=== PATIENT | male | born 1955 | race Caucasian/White ===

== ENCOUNTER 2018-04-20 09:48 | Emergency (ER) | payer BC ==
[2018-04-20] MEDS ORDERED: LIDOCAINE 5% (700 MG) TRANSDERMAL ADH..PATCH TP ONE (10:14)
[2018-04-20] MEDS ORDERED: KETOROLAC TROMETHAMINE INJ/PF 30 MG/1 ML SDV IM ONE (10:15)
[2018-04-20] MEDS ORDERED: CYCLOBENZAPRINE HCL 10 MG TABLET PO ONE (10:15)
[2018-04-20 10:19] VITALS: BP 175/81
--- NOTE | 2018-04-20 10:20 | ER Document Report ---
HPI - HPI Time Seen by Provider: 04/20/18 10:04 Notes: Patient is a 62-year-old male with a history of type 2 diabetes, chronic back pain who presents to the ED complaining of a flareup of his right low back pain prior to arrival. Patient states that he was starting to have pain yesterday and had been chopping wood and doing more than he was supposed to be doing. Patient states that he noticed a sharp pain this morning that radiated down the L4 dermatome approximately which is not unusual for him. Patient states that he is supposed to have surgery, but is working on [employer] to allow it. He takes naproxen for his pain management twice daily which usually works really well for him. Patient states that he has not had an intense pain like this before, but after receiving medications by EMS the pain has resolved and he is feeling much better. He denies any IV drug abuse. He has been eating and drinking without any difficulties. He is urinating normally and having normal bowel movements. He has no other concerns or complaints or any history of spinal abscess. Denies any headache, fever, neck pain, URI, sore throat, chest pain, palpitations, syncope, cough, shortness of breath, wheeze, dyspnea, abdominal pain, nausea/vomiting/diarrhea, urinary retention, dysuria, hematuria, loss of control of bowel or bladder, numbness/tingling, saddle anesthesia, muscle paralysis/weakness, or rash. - ROS Systems Reviewed and Negative: Yes All other systems reviewed and negative Past Medical History - Social History Smoking Status: Never Smoker Family History: Reviewed & Not Pertinent Vertical Provider Document - CONSTITUTIONAL Agree With Documented VS: Yes Notes: PHYSICAL EXAMINATION: GENERAL: Well-appearing, well-nourished and in no acute distress. LUNGS: Breath sounds clear to auscultation bilaterally and equal. No wheezes rales or rhonchi. HEART: Regular rate and rhythm without murmurs, rubs, gallops. ABDOMEN: Soft, nontender, nondistended abdomen. No guarding, no rebound. No masses appreciated. Normal bowel sounds present. No CVA tenderness bilaterally. No pulsatile mass. Rectal tone intact. Musculoskeletal: LE's b/l: FROM to passive/active. Strength 5+/5. No deficits noted. No bony tenderness of extremities. Back: FROM to passive/active. Strength 5+/5. No vertebral point tenderness, stepoffs, or deformities. No other bony tenderness, erythema, swelling, or ecchymosis. SLR negative b/l. + mild tenderness to the Rt L-paraspinal mm/facets near L3-5. Mild spasming. No SI jt tenderness. No foot drop Extremities: No cyanosis, clubbing, or edema b/l. Peripheral pulses 2+. Capillary refill less than 2 seconds. NEUROLOGICAL: Normal speech, normal gait. Normal sensory, motor exams. Reflexes 2+ b/l. PSYCH: Normal mood, normal affect. SKIN: Warm, Dry, normal turgor, no rashes or lesions noted. Course - Re-evaluation Re-evalutation: 04/20/18 10:19 Patient is an afebrile, well-hydrated, 62-year-old male who presents to the ED w ith acute on chronic low back pain. Vitals are acceptable. PE is otherwise unremarkable for any focal neurological deficits. Patient was given Toradol, flexeril, and Lidoderm patch. He has no significant tachycardia, tachypnea, or hypoxia. He is nontoxic-appearing and is tolerating p.o. without difficulties. There are no signs of infection. No other red flag symptoms noted. Pt currently asymptomatic. No other labs or imaging warranted at this time based on H&P. Low suspicion for any meningitis, fracture, expanding/ruptured AAA, cauda equina syndrome, epidural mass lesion/abscess, herniated disc causing severe spinal stenosis, or other systemic infection at this time. Patient is aware that his condition can change from initial presentation and that he needs monitor symptoms closely for any acute changes. I will send him home with a prescription for baclofen and lidoderm patches. Conservative measures otherwise for symptoms. Recheck with your PCM in 3-5 days. Consider consult with orthopedic/physical therapy. Return to the ED with any worsening/concerning symptoms otherwise as reviewed discharge. Patient is in agreement. Discharge - Discharge Clinical Impression: Low back pain Qualifiers: Chronicity: acute Back pain laterality: right Sciatica presence: with sciatica Sciatica laterality: sciatica of right side Qualified Code(s): M54.41 - Lumbago with sciatica, right side Condition: Stable Disposition: HOME, SELF-CARE Instructions: Low Back Pain ([facility]), Stretching Exercises for the Back ([facility]), Muscle Relaxers ([facility]) Additional Instructions: Rest, Ice Tylenol/ibuprofen as needed Light stretches daily Strength exercises as able Moist heat and massage may help F/u with your PCP in 3-5 days for a recheck Consider consult(s) with Orthopedics/physical therapy for ongoing/worsening symptoms Return to the ED with any worsening symptoms and/or development of fever, hea dache, chest pain, palpitations, syncope, shortness of breath, trouble breathing, abdominal pain, n/v/d, blood in stool/urine, loss of control of bowel/bladder, urinary retention, muscle weakness/paralysis, saddle anesthesia, numbness/tingling, or other worsening symptoms that are concerning to you. Prescriptions: Baclofen [Baclofen 10 mg Tablet] 5 - 10 mg PO BID PRN #10 tablet PRN Reason: Lidocaine [Lidoderm 5% (700 mg) Transdermal Patch] 1 patch TP DAILY #10 adh..patch Forms: Elevated Blood Pressure Referrals: WILL WILKINS MD [Primary Care Provider] - Follow up as needed [facility] [Provider Group] - Follow up as needed
[2018-04-20] MEDS ORDERED: KETOROLAC TROMETHAMINE INJ/PF 30 MG/1 ML SDV IV ONE (10:44)
== END 2018-04-20 10:55 | disposition home or self-care (01) ==
LOC: ER 09:48
DX: M54.41 Lumbago with sciatica, right side (principal); E11.9 Type 2 diabetes mellitus without complications; G89.29 Other chronic pain
CPT/HCPCS: 99283; 96374; J1885

== ENCOUNTER 2018-05-02 03:45 | Emergency (ER) | payer OTHER, BC ==
[2018-05-02] MEDS ORDERED: LIDOCAINE 5% (700 MG) TRANSDERMAL ADH..PATCH TP ONE (04:38)
[2018-05-02] MEDS ORDERED: KETOROLAC TROMETHAMINE 60 MG/2 ML SDV IM ONE (04:38)
--- NOTE | 2018-05-02 04:38 | ER Document Report ---
HPI - HPI Patient complains to provider of: lower back pain Time Seen by Provider: 05/02/18 04:04 Pain Level: 4 Context: Patient is a 62-year-old male with a history of diabetes, hypertension, GERD and chronic back pain that comes to the emergency department for chief complaint of right-sided lower back pain. He states it radiates down to his lower back and into his leg. He states he has had some chronic numbness in the lower leg on the same side. He states that he had an injury lifting at work, had an MRI, was supposed to have a follow-up MRI and surgery scheduled but this is still pending. He states he was seen recently, given Toradol, muscle relaxer, and Lidoderm patches with excellent effect. He states he had complete resolution until 2 days ago when he started having a lot of pain again. He is unsure of reinjury, does not believe he had one. He denies fever, incontinence, new numbness, or any other complaints. Denies history of IV drug abuse. Patient states he is not as bad as last time but he does not want to get that bad again. Past Medical History - General Information source: Patient - Social History Smoking Status: Never Smoker Frequency of alcohol use: None Drug Abuse: None Lives with: Family Family History: Reviewed & Not Pertinent - Past Medical History Cardiac Medical History: Reports: Hx Hypertension Endocrine Medical History: Reports: Hx Diabetes Mellitus Type 2 Renal/ Medical History: Denies: Hx Peritoneal Dialysis - Immunizations Immunizations up to date: Yes Hx Diphtheria, Pertussis, Tetanus Vaccination: Yes Vertical Provider Document - CONSTITUTIONAL General Appearance: WD/WN, No Apparent Distress - INFECTION CONTROL TRAVEL OUTSIDE OF THE [place] IN LAST 30 DAYS: No - HEENT HEENT: Atraumatic, Normocephalic - NECK Neck: Normal Inspection - RESPIRATORY Respiratory: Breath Sounds Normal, No Respiratory Distress - CARDIOVASCULAR Cardiovascular: Regular Rate, Regular Rhythm - GI/ABDOMEN Gastrointestinal: Abdomen Soft, Abdomen Non-Tender - BACK Back: Normal Inspection - Tender over the right paralumbar musculature. Positive straight leg raise on the right. No midline tenderness, no saddle anesthesia, no signs of trauma. Normal upper and lower extremity range of motion, normal strength, normal distal neurovascular exam. - MUSCULOSKELETAL/EXTREMETIES Musculoskeletal/Extremeties: MAKHOA, FROM, Non-Tender Course - Re-evaluation Re-evalutation: Patient with no neurological deficits. Positive straight leg raise and examination consistent with muscle spasm and right-sided sciatica. No concerning reported symptoms, no deficits noted. No fever. Patient already has follow-up with MRI and surgery scheduled with orthopedics. Patient is asking for the same treatment as last time. I looked this up, he was given a few baclofen along with Lidoderm patches. He was provided with the same. Discussed follow-up and return precautions at length with patient. Patient states understanding and agreement. - Vital Signs Vital signs: Temp Pulse Resp BP Pulse Ox 97.7 F 72 16 155/61 H 96 05/02/18 03:50 05/02/18 03:50 05/02/18 03:50 05/02/18 03:50 05/02/18 03:50 Discharge - Discharge Clinical Impression: Lower back pain Qualifiers: Chronicity: unspecified Back pain laterality: right Sciatica presence: with sciatica Sciatica laterality: sciatica of right side Qualified Code(s): M54.41 - Lumbago with sciatica, right side Condition: Stable Disposition: HOME, SELF-CARE Additional Instructions: Take medications as prescribed for your lower back pain. You can continue the naproxen as well. You can apply heat to the area, do gentle stretches, rest. Follow-up with primary care for additional evaluation including MRI and potential surgery as discussed. Return for any concerning symptoms including developing numbness, inability to urinate, unable to control your bowels, fever, or any other concerning or worsening symptoms. Prescriptions: Baclofen [Baclofen 10 mg Tablet] 5 - 10 mg PO BID PRN #10 tablet PRN Reason: Lidocaine [Lidoderm 5% (700 mg) Transdermal Patch] 1 patch TP DAILY #15 adh..patch Forms: Return to Work Referrals: DEMETRIS ROSADO MD [Primary Care Provider] - Follow up as needed
[2018-05-02 04:56] VITALS: BP 133/73
== END 2018-05-02 05:06 | disposition home or self-care (01) ==
LOC: ER 03:45
DX: M54.41 Lumbago with sciatica, right side (principal); E11.9 Type 2 diabetes mellitus without complications; I10 Essential (primary) hypertension; K21.9 Gastro-esophageal reflux disease without esophagitis; G89.29 Other chronic pain
CPT/HCPCS: 99283; 96374; J1885

== ENCOUNTER 2018-05-11 08:14 | Emergency (ER) | payer OTHER, BC ==
[2018-05-11 08:26] VITALS: BP 175/98
[2018-05-11] MEDS ORDERED: PREDNISONE 20 MG TABLET PO ONE (09:47)
[2018-05-11] MEDS ORDERED: OXYCODONE-ACETAMINOPHEN 5-325 MG TABLET PO ONE (09:49)
[2018-05-11] MEDS ORDERED: LIDOCAINE 5% (700 MG) TRANSDERMAL ADH..PATCH TP ONE (09:49)
--- NOTE | 2018-05-11 09:53 | ER Document Report ---
HPI - HPI Patient complains to provider of: Low back pain Time Seen by Provider: 05/11/18 09:09 Onset: Last week Onset/Duration: Persistent Quality of pain: Sharp Pain Level: 5 Context: Patient states he has a history of chronic low back pain but states that he fell last week while at work causing pain that radiates into the left lower extremity. Patient states that he went to the urgent care as this was his Workmen's Compensation provider and had x-rays performed that were negative. Patient states he was given medication and is supposed to follow-up with him in 2 days. Patient states that the pain became too much to bear and so he came here today. This is the patient's third visit in less than a month for back pain complaints. Patient does have muscle relaxers Flexeril as well as Valium as well as NSAIDs that he has been using to manage his pain. Patient denies any new injury since then. Patient states that he has had previous back surgery and was supposed to be set up for surgery as well as outpatient MRI for his prior back injury. Patient states that Workmen's Comp. has denied his claim and he is here hoping for MRI as well as additional pain medication today. Patient denies any fever, urinary retention or incontinence. Patient denies any history of IV drug abuse or chronic alcoholism. Associated Symptoms: Other - Low back pain. denies: Fever Exacerbated by: Standing, Movement, Walking Relieved by: Denies Similar symptoms previously: Yes Recently seen / treated by doctor: Yes - ROS ROS below otherwise negative: Yes Systems Reviewed and Negative: Yes All other systems reviewed and negative - CONSTITUTIONAL Constitutional: DENIES: Fever, Chills - NEURO Neurology: DENIES: Weakness - GASTROINTESTINAL Gastrointestinal: DENIES: Nausea, Patient vomiting - URINARY Urinary: DENIES: Dysuria - MUSCULOSKELETAL Musculoskeletal: REPORTS: Extremity pain, Back Pain - DERM Skin Color: Normal Skin Problems: None Past Medical History - General Information source: Patient - Social History Smoking Status: Never Smoker Chew tobacco use (# tins/day): No Frequency of alcohol use: None Drug Abuse: None Occupation: Maintenance Lives with: Spouse/Significant other Family History: Reviewed & Not Pertinent Patient has suicidal ideation: No Patient has homicidal ideation: No - Past Medical History Cardiac Medical History: Reports: Hx Hypertension Endocrine Medical History: Reports: Hx Diabetes Mellitus Type 2 Renal/ Medical History: Denies: Hx Peritoneal Dialysis GI Medical History: Reports: Hx Gastroesophageal Reflux Disease Musculoskeletal Medical History: Reports Other - Chronic low back pain Psychiatric Medical History: Denies: Hx Depression - anxiety Past Surgical History: Reports: Hx Orthopedic Surgery - back - Immunizations Immunizations up to date: Yes Hx Diphtheria, Pertussis, Tetanus Vaccination: Yes Vertical Provider Document - CONSTITUTIONAL Agree With Documented VS: Yes Exam Limitations: No Limitations General Appearance: WD/WN, No Apparent Distress Notes: PHYSICAL EXAMINATION: GENERAL: Well-appearing, well-nourished and in no acute distress. HEAD: Atraumatic, normocephalic. EYES: sclera clear, anicteric, conjunctiva are normal. ENT: nares patent, Moist mucous membranes. NECK: Normal range of motion, supple no lymphadenopathy LUNGS: respirations unlabored HEART: Regular rate and rhythm without murmurs EXTREMITIES: Normal range of motion, no pitting or edema. No cyanosis. Gait normal, pt ambulates without difficulty BACK: Left lower lumbar paraspinal tenderness, no midline tenderness, no deformities or step-offs. No CVA tenderness. NEUROLOGICAL: Cranial nerves grossly intact. Normal speech, normal gait. No saddle anesthesia. Positive straight leg test on the left. No foot drop, 2+ bilat patellar reflexes PSYCH: Normal mood, normal affect. SKIN: Warm, Dry, normal turgor, no rashes or lesions noted. - INFECTION CONTROL TRAVEL OUTSIDE OF THE [place] IN LAST 30 DAYS: No Course - Re-evaluation Re-evalutation: 05/11/18 09:50 Patient has been seen by multiple providers for his chronic back pain and has already seen his Workmen's Comp. provider after his most recent back injury. Patient states that he is artery been established with [facility] and states that he would have no difficulty in calling them to get a MRI scheduled. Patient is on muscle relaxers for his back pain as well as Valium 3 times daily for vertigo symptoms. Patient states that he takes the Valium twice a day every day. Discussed with patient concerns about mixing narcotics with benzodiazepine drugs. Patient does take sulcrafate and denies any history of GI bleeding and states that he is compliant with taking his sulcrafate. Will give a short course of steroids to help with his radicular pain symptoms. Patient advised that he should stop the medication were he to have any abdominal pain or GI bleeding symptoms. The patient presents with low back pain without signs of spinal cord compression, cauda equina syndrome, infection, aneurysm, or other serious etiology. The patient is neurologically intact. Given the extremely risk of these diagnoses further testing and evaluation for these possibilities does not appear to be indicated at this time. Patient has been instructed to return if the symptoms worsen or change in any way. - Vital Signs Vital signs: Temp Pulse Resp BP Pulse Ox 97.9 F 87 20 175/98 H 96 05/11/18 08:25 05/11/18 08:25 05/11/18 08:25 05/11/18 08:25 05/11/18 08:25 Discharge - Discharge Clinical Impression: Lumbar radicular pain Low back pain Qualifiers: Chronicity: unspecified Back pain laterality: left Sciatica presence: with sciatica Sciatica laterality: sciatica laterality unspecified Qualified Code(s): M54.42 - Lumbago with sciatica, left side Condition: Stable Disposition: HOME, SELF-CARE Instructions: Ice Packs ([facility]), Low Back Pain ([facility]) Additional Instructions: Return immediately for any new or worsening symptoms Followup with your primary care provider, call tomorrow to make a followup appointment Follow-up with your Workmen's Comp. provider for a recheck. Follow up with orthopedics for further evaluation of back pain Prescriptions: Gabapentin [Neurontin 300 mg Capsule] 300 mg PO Q8 #30 cap Prednisone [Deltasone 20 mg Tablet] 2 tab PO DAILY 4 Days tablet Referrals: DEMETRIS ROSADO MD [Primary Care Provider] - Follow up tomorrow
== END 2018-05-11 10:06 | disposition home or self-care (01) ==
LOC: ER 08:14
DX: M54.16 Radiculopathy, lumbar region (principal); M54.42 Lumbago with sciatica, left side; W19.XXXA Unspecified fall, initial encounter; Y99.0 Civilian activity done for income or pay; I10 Essential (primary) hypertension; E11.9 Type 2 diabetes mellitus without complications; K21.9 Gastro-esophageal reflux disease without esophagitis; Z79.899 Other long term (current) drug therapy; Z98.890 Other specified postprocedural states
CPT/HCPCS: 99283; J7512

== ENCOUNTER 2019-05-30 21:32 | Emergency (ER) | payer BC ==
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
[2019-05-31] MEDS ORDERED: SILVER SULFADIAZINE 1% CREAM 25 GM TP ONE (00:03)
[2019-05-31 00:47] VITALS: BP 148/80
== END 2019-05-31 00:56 | disposition home or self-care (01) ==
LOC: ER 21:32
DX: T20.211A Burn of second degree of right ear [any part, except ear drum], initial encounter (principal); T20.26XA Burn of second degree of forehead and cheek, initial encounter; T20.19XA Burn of first degree of multiple sites of head, face, and neck, initial encounter; T28.411A Burn of right ear drum, initial encounter; T20.17XA Burn of first degree of neck, initial encounter; T23.171A Burn of first degree of right wrist, initial encounter; X03.0XXA Exposure to flames in controlled fire, not in building or structure, initial encounter; I10 Essential (primary) hypertension; E11.9 Type 2 diabetes mellitus without complications
CPT/HCPCS: 99283